=== PATIENT | male | born 1980 | race African-American/Black ===

== ENCOUNTER 2018-09-12 10:29 | Emergency (ER) | payer SELFPAY ==
[~2018-09-12] VITALS: Ht 190.5 cm; Wt 90.0 kg
[2018-09-12 10:43] VITALS: BP 145/83
== END 2018-09-12 11:30 | disposition left against medical advice (07) | DRG 951 ==
LOC: ED 10:29
DX: Z91.19 Patient's noncompliance with other medical treatment and regimen (principal)